=== PATIENT | female | born 1995 | race Caucasian/White ===

== ENCOUNTER 2018-12-15 13:44 | Emergency (ER) | payer OTHER ==
[~2018-12-15] VITALS: Ht 157.5 cm; Wt 52.2 kg
[~2018-12-15 13:44] MED LIST: PRENATAL TABLE1 EAC2 PO
--- NOTE | 2018-12-15 15:36 | NUR ---
PATIENT SITTING IN BED TALKING TO FAMILY AT BEDSIDE. RESP EVEN AND UNLABORED. SKIN WARM AND DRY. NO SIGNS OF ACUTE DISTRESS NOTED AT THIS TIME. EDCATED PATIENT ON THE CURRENT PLAN OF CARE, PENDING XRAY,VERBALIZED UNDERSTANDING.
--- NOTE | 2018-12-15 15:54 | Diagnostic Imaging Report ---
RIGHT FOOT X-RAY - 3 VIEWS HISTORY: Trauma one day ago COMPARISON: None available. FINDINGS: Bones: No acute displaced fracture. Osseous alignment is within normal limits. Joints: The joint spaces are well-maintained. Soft tissues: The soft tissues appear unremarkable. IMPRESSION: No acute radiographic abnormality. Signed by: Dr. Yuni Gan M.D. on 12/15/2018 3:51 PM
[2018-12-15 16:33] VITALS: BP 125/65
== END 2018-12-15 16:34 | disposition home or self-care (01) ==
LOC: FSED 13:44
DX: O26.92 Pregnancy related conditions, unspecified, second trimester (principal); S90.01XA Contusion of right ankle, initial encounter; S96.911A Strain of unspecified muscle and tendon at ankle and foot level, right foot, initial encounter; W18.30XA Fall on same level, unspecified, initial encounter; Y93.01 Activity, walking, marching and hiking; Y92.008 Other place in unspecified non-institutional (private) residence as the place of occurrence of the external cause
CPT/HCPCS: 99283

== ENCOUNTER 2020-10-21 12:50 | Emergency (ER) | payer MEDICARE, OTHER ==
[~2020-10-21] VITALS: Ht 157.5 cm; Wt 52.2 kg
[2020-10-21 13:52] LABS: CLARITY,URINE CLEAR (CLEAR); COLOR,URINE YELLOW (YELLOW); KETONES,URINE NEGATIVE (NEGATIVE); LEUKOCYTE ESTERASE ,URINE 1+ (NEGATIVE); NITRITE,URINE NEGATIVE (NEGATIVE); PROTEIN,URINE DIPSTICK NEGATIVE (NEGATIVE); URINE UROBILINOGEN 0.2 mg/dL (0.2 - 1)
[2020-10-21 14:04] LABS: WBC,URINE (MAN) 21-50 /HPF (0-5)
[2020-10-21 14:06] LABS: BACTERIA,URINE FEW /HPF; EPITHELIAL CELLS,URINE MANY /LPF
[2020-10-21] MEDS ORDERED: CIPRO500 MG PO (15:54)
[2020-10-21] MEDS ORDERED: TYLENOL # 31 EA PO (15:57)
[2020-10-21 16:00] VITALS: BP 124/69
== END 2020-10-21 16:04 | disposition home or self-care (01) ==
LOC: ER 13:27
DX: R10.11 Right upper quadrant pain (principal); R11.0 Nausea; N39.0 Urinary tract infection, site not specified; F41.9 Anxiety disorder, unspecified
CPT/HCPCS: 76705; 81001; 81025; 99283

== ENCOUNTER 2025-04-06 11:34 | Emergency (ER) | payer MEDICARE, OTHER ==
[~2025-04-06] VITALS: Ht 160 cm; Wt 96.4 kg
[~2025-04-06 11:34] MED LIST changes: +CIPRO500 MG PO; +TYLENOL # 31 EA PO
[2025-04-06 14:19] VITALS: PULSE 85; RESP 16; TEMP 97.4; O2SAT 98
== END 2025-04-06 14:19 | disposition home or self-care (01) ==
LOC: FSED 11:57
DX: R10.31 Right lower quadrant pain (principal); N39.0 Urinary tract infection, site not specified; F41.9 Anxiety disorder, unspecified; E66.9 Obesity, unspecified
CPT/HCPCS: 81003; 81025; 87086; 99283